=== PATIENT | female | born 1970 | race Caucasian/White ===

== ENCOUNTER 2018-04-21 11:19 | Emergency (ER) | payer MEDICAID ==
[~2018-04-21] VITALS: Ht 165.1 cm; Wt 134.8 kg
[~2018-04-21 11:19] MED LIST: ATOR10TA87 PO; CLOP75TA35 PO; DIL100C PO; HYDR1TAB PO; LOP25T PO; ZOLP5TAB8 PO
[2018-04-21 11:21] VITALS: BP 157/92
[2018-04-21] MEDS ORDERED: ethyl chloride 103.5ml spray TP ONE (14:15)
[2018-04-21 15:56] LABS: GLUCOSE,SYNOVIAL FLUID 70 MG/DL; TOTAL PROTEIN,SYNOVIAL FLUID 3.3 GM/DL
[2018-04-21 16:17] LABS: APPEARANCE,SYNOVIAL FLUID CLOUDY; COLOR,SYNOVIAL FLUID YELLOW; SYN RBC 108 /CU MM (0); SYN WBC 3425 /CU MM (0-200)
[2018-04-21 16:18] LABS: SYNOVIAL FLUID CRYSTALS QT NO CRYSTALS SEEN
== END 2018-04-21 14:55 | disposition home or self-care (01) ==
LOC: ER 11:19
DX: M25.462 Effusion, left knee (principal); I25.2 Old myocardial infarction; J45.909 Unspecified asthma, uncomplicated; Z91.09 Other allergy status, other than to drugs and biological substances; Z95.1 Presence of aortocoronary bypass graft; Z88.8 Allergy status to other drugs, medicaments and biological substances; Z79.899 Other long term (current) drug therapy
CPT/HCPCS: 20610; 82945; 84157; 87070; 89051; 89060; 99284

== ENCOUNTER 2018-06-30 17:00 | Emergency (ER) | payer MEDICAID ==
[~2018-06-30] VITALS: Ht 165.1 cm; Wt 123.5 kg
[2018-06-30 17:05] VITALS: BP 157/108
[2018-06-30] MEDS ORDERED: IBUP-1984 PO (17:36)
[2018-06-30] MEDS ORDERED: AZIT250T83 PO (17:36)
[2018-06-30] MEDS ORDERED: HYDROcodone/acetaminophen 10/325mg tab PO ONE (17:40)
[2018-06-30] MEDS ORDERED: ketorolac trometh inj. 60 MG/2 ML VIAL IM ONE (17:40)
== END 2018-06-30 18:07 | disposition home or self-care (01) ==
LOC: ER 17:01
DX: J32.9 Chronic sinusitis, unspecified (principal); J20.9 Acute bronchitis, unspecified; R51 Headache; M25.462 Effusion, left knee; J45.909 Unspecified asthma, uncomplicated; I25.2 Old myocardial infarction; Z88.6 Allergy status to analgesic agent; Z79.899 Other long term (current) drug therapy
CPT/HCPCS: 96372; 99284; J1885

== ENCOUNTER 2018-08-09 08:05 | Emergency (ER) | payer MEDICAID ==
[~2018-08-09] VITALS: Ht 165.1 cm; Wt 125.7 kg
[2018-08-09 08:07] VITALS: BP 140/94
[2018-08-09] MEDS ORDERED: HYDROcodone/acetaminophen 10/325mg tab PO ONE (09:40)
[2018-08-09] MEDS ORDERED: ibuprofen tablet 400 MG TABLET PO ONE (09:40)
== END 2018-08-09 10:03 | disposition home or self-care (01) ==
LOC: ER 08:05
DX: M25.562 Pain in left knee (principal); M25.662 Stiffness of left knee, not elsewhere classified; L90.5 Scar conditions and fibrosis of skin; I25.2 Old myocardial infarction; J45.909 Unspecified asthma, uncomplicated; Z88.8 Allergy status to other drugs, medicaments and biological substances; Z79.899 Other long term (current) drug therapy; Z95.1 Presence of aortocoronary bypass graft; X50.1XXA Overexertion from prolonged static or awkward postures, initial encounter; Y93.89 Activity, other specified; Y92.89 Other specified places as the place of occurrence of the external cause; Y99.8 Other external cause status
CPT/HCPCS: 73564; 99284

== ENCOUNTER 2021-07-01 19:11 | Emergency (ER) | payer MEDICAID ==
[~2021-07-01] VITALS: Ht 165.1 cm; Wt 136.4 kg
[~2021-07-01 19:11] MED LIST changes: +CLOP75TA34 PO; -CLOP75TA35 PO
[2021-07-01] MEDS ORDERED: normal saline 1000ml 1,000 ML IV ONE (20:05)
[2021-07-01] MEDS ORDERED: BAMLANIVIMAB 700mg/20ml inj. 700 MG, ETESEVIMAB 700mg/20mL inj. 1,400 MG in normal sali... IV ONE (20:05)
[2021-07-01 20:51] LABS: BASOPHILS # (AUTO) 0.1 X10'3 (0-0.2); BASOPHILS % (AUTO) 0.8 % (0-1); EOSINOPHILS # (AUTO) 0.1 X10'3 (0-0.9); EOSINOPHILS % (AUTO) 1.1 % (0-6); HEMOGLOBIN 17.3 g/dl (12.0-16.0); LYMPHOCYTES # (AUTO) 2.3 X10'3 (1.1-4.8); LYMPHOCYTES % (AUTO) 36.2 % (21-51); MEAN CORPUSCULAR HEMOGLOBIN 32.2 PG (27.0-31.0); MEAN CORPUSCULAR HGB CONC 34.7 g/dL (33.0-36.5); MONOCYTES # (AUTO) 0.7 X10'3 (0-0.9); MONOCYTES % (AUTO) 10.9 % (2-12); NEUTROPHILS # (AUTO) 3.3 X10'3 (1.8-7.7); PLATELET COUNT 301 X10'3 (140-440); RED BLOOD COUNT 5.38 X10'6 (4.20-5.60); RED CELL DISTRIBUTION WIDTH 12.7 % (11.5-14.5); WHITE BLOOD COUNT 6.5 X10'3 (4.5-11.0)
[2021-07-01 20:55] LABS: ALANINE AMINOTRANSFERASE 71 U/L (12-78); ALBUMIN 3.9 G/DL (3.4-5.0); ALBUMIN/GLOBULIN RATIO 0.9 (1.1-1.5); ALKALINE PHOSPHATASE 104 IU/L (46-116); ANION GAP 10 (8-16); ASPARTATE AMINO TRANSFERASE 45 U/L (10-37); BILIRUBIN,TOTAL 0.3 MG/DL (0.1-1.0); BLOOD UREA NITROGEN 18 MG/DL (7-18); BUN/CREATININE RATIO 19.4 (6.6-38.0); CALCIUM 9.8 MG/DL (8.5-10.1); CHLORIDE 104 MMOL/L (99-107); CREATININE 0.93 MG/DL (0.40-0.90); GLUCOSE 105 MG/DL (70-104); POTASSIUM 4.6 MMOL/L (3.5-5.1); SODIUM 142 MMOL/L (135-145); TOTAL CARBON DIOXIDE 27.7 MMOL/L (24-32); TOTAL PROTEIN 8.3 G/DL (6.4-8.2); eGFR 64 ML/MIN
[2021-07-01 22:54] VITALS: BP 129/95
== END 2021-07-01 22:45 | disposition home or self-care (01) ==
LOC: ER 19:12
DX: U07.1 COVID-19 (principal); R05.9 Cough, unspecified; I25.10 Atherosclerotic heart disease of native coronary artery without angina pectoris; I25.2 Old myocardial infarction; J45.909 Unspecified asthma, uncomplicated; Z95.5 Presence of coronary angioplasty implant and graft; Z88.8 Allergy status to other drugs, medicaments and biological substances; Z79.899 Other long term (current) drug therapy
CPT/HCPCS: 36415; 71045; 80053; 85025; 87635; 99284; C9803; M0239; Q0239; Q0245

== ENCOUNTER 2021-07-21 10:04 | Inpatient (IN) | payer MEDICAID ==
[~2021-07-21] VITALS: Ht 167.6 cm; Wt 110.0 kg
[~2021-07-21 10:04] MED LIST changes: +levetiracetam inj 1,000 MG in normal saline 100ml IV soln 90 ML IV SCH
--- NOTE | 2021-07-21 10:51 | NUR ---
ATTEMPT EKG, PT TO CT AT THIS MOMENT,
[2021-07-21 11:06] LABS: BASOPHILS % (AUTO) 0.5 % (0-1); EOSINOPHILS % (AUTO) 0.3 % (0-6); HEMATOCRIT 36.4 % (35.0-45.0); HEMOGLOBIN 12.5 g/dl (12.0-16.0); LYMPHOCYTES # (AUTO) 1.1 X10'3 (1.1-4.8); LYMPHOCYTES % (AUTO) 11.6 % (21-51); MEAN CORPUSCULAR HGB CONC 34.2 g/dL (33.0-36.5); MEAN CORPUSCULAR VOLUME 93.6 FL (78-98); MEAN PLATELET VOLUME 7.8 FL (7.4-10.4); MONOCYTES # (AUTO) 0.8 X10'3 (0-0.9); NEUTROPHILS # (AUTO) 7.7 X10'3 (1.8-7.7); NEUTROPHILS % (AUTO) 79.6 % (42-75); PLATELET COUNT 301 X10'3 (140-440); RED BLOOD COUNT 3.89 X10'6 (4.20-5.60); RED CELL DISTRIBUTION WIDTH 12.7 % (11.5-14.5); WHITE BLOOD COUNT 9.6 X10'3 (4.5-11.0)
[2021-07-21 11:19] LABS: ALANINE AMINOTRANSFERASE 41 U/L (12-78); ALBUMIN 3.1 G/DL (3.4-5.0); ALBUMIN/GLOBULIN RATIO 0.9 (1.1-1.5); ALKALINE PHOSPHATASE 89 IU/L (46-116); ANION GAP 11 (8-16); ASPARTATE AMINO TRANSFERASE 25 U/L (10-37); BILIRUBIN,TOTAL 0.4 MG/DL (0.1-1.0); BLOOD UREA NITROGEN 13 MG/DL (7-18); BUN/CREATININE RATIO 18.6 (6.6-38.0); CALCIUM 8.5 MG/DL (8.5-10.1); CHLORIDE 108 MMOL/L (99-107); ETHANOL < 0.010 GM/DL (0.0-0.010); GLUCOSE 106 MG/DL (70-104); SODIUM 143 MMOL/L (135-145); TOTAL CARBON DIOXIDE 24.3 MMOL/L (24-32); TOTAL PROTEIN 6.7 G/DL (6.4-8.2); eGFR 89 ML/MIN
[2021-07-21] MEDS ORDERED: LORazepam 2 mg/ml vial ONE (11:50)
[2021-07-21] MEDS ORDERED: LORazepam 2 mg/ml vial IV ONE (11:50)
[2021-07-21 11:56] LABS: URINE AMPHETAMINE SCREEN POSITIVE (Neg); URINE BARBITUATE SCREEN NEGATIVE (Neg); URINE BENZODIAZEPINES SCREEN NEGATIVE (Neg); URINE CANNABINOID SCREEN NEGATIVE (Neg); URINE COCAINE SCREEN NEGATIVE (Neg); URINE METHADONE SCREEN NEGATIVE (Neg); URINE OPIATE SCREEN NEGATIVE (Neg); URINE PHENCYCLIDINE SCREEN NEGATIVE (Neg)
--- NOTE | 2021-07-21 11:59 | NUR ---
FAMILY AT BEDSIDE STATING PT HAVING SEIZURE. DR ANGELO AWARE AND MEDS ORDERED
[2021-07-21] MEDS ORDERED: furosemide 10 MG/1 ML 10ml inj IV ONE (12:45)
[2021-07-21] MEDS ORDERED: levetiracetam inj 1,000 MG in normal saline 100ml IV soln 90 ML IV ONE ×2 (12:53→17:35)
[2021-07-21 13:16] LABS: CLARITY,URINE TURBID (Clear); COLOR,URINE YELLOW (Yellow); GLUCOSE, URINE NEGATIVE (Neg); KETONES,URINE TRACE mg/dl (Neg); LEUKOCYTE ESTERASE ,URINE NEGATIVE (Neg); NITRITES, URINE NEGATIVE (Neg); OCCULT BLOOD,URINE NEGATIVE (Neg); PROTEIN,URINE NEGATIVE (Neg); UA COLLECTION TYPE VOIDED; UROBILINOGEN,URINE 0.2 E.U/dL (0.2-1.0)
[2021-07-21] MEDS ORDERED: bisacodyl 10mg suppository rectal RC PRN (13:20)
[2021-07-21] MEDS: normal saline 1000ml 1,000 ML IV SCH ×2 (13:20→23:20)
[2021-07-21] MEDS ORDERED: acetaminophen 325mg tablet PO PRN ×2 (13:20)
[2021-07-21] MEDS ORDERED: magnesium 4gm in 100ml NS 100 ML IV PRN (13:20)
[2021-07-21] MEDS ORDERED: mag hydrox/Alum hydrox/simeth 30ml oral suspension PO PRN (13:20)
[2021-07-21] MEDS ORDERED: ondansetron/PF 4mg/2ml inj IV PRN (13:20)
[2021-07-21] MEDS ORDERED: potassium Cl 20 mEq SR tablet PO PRN ×2 (13:20)
[2021-07-21] MEDS ORDERED: LORazepam 2 mg/ml vial IV PRN (13:20)
[2021-07-21] MEDS ORDERED: magnesium Cl slow-release 64mg tablet PO PRN (13:20)
[2021-07-21] MEDS ORDERED: potassium Cl 40MEQ/1/2NS 520ml 520 ML IV PRN ×2 (13:20)
[2021-07-21] MEDS ORDERED: HYDROcodone/acetaminophen 10/325mg tab PO PRN (13:20)
[2021-07-21] MEDS ORDERED: magnesium 2GM in 50ml NS 50 ML IV PRN (13:20)
[2021-07-21] MEDS ORDERED: HYDROcodone/acetaminophen 5mg/325mg tablet PO PRN (13:20)
[2021-07-21] MEDS ORDERED: magnesium hydroxide 30ml (MOM) UD suspension PO PRN (13:20)
[2021-07-21 13:29] LABS: AMORPHOUS URATES 3+
[2021-07-21 13:31] LABS: BACTERIA,URINE NONE SEEN /HPF (Neg); RBC,URINE NONE SEEN /HPF (0-2); SQUAMOUS EPITHELIAL CELL,UR MANY /LPF (FEW); WBC,URINE 0-4 /HPF (0-4)
[2021-07-21 13:32] LABS: MUCUS STRANDS NONE SEEN /LPF (Neg)
[2021-07-21] MEDS ORDERED: NO HOME MEDS PO (16:08)
[2021-07-21] MEDS ORDERED: levetiracetam inj 1,000 MG in normal saline 100ml IV soln 90 ML IV SCH (18:15)
[2021-07-21] MEDS: K and/or MAG REPLACEMENT MC SCH (20:00)
[2021-07-21] MEDS: docusate sod 100mg capsule PO SCH (20:38)
[2021-07-21] MEDS ORDERED: temazepam 15mg capsule PO PRN (21:00)
[2021-07-22] MEDS ORDERED: levetiracetam inj 1,000 MG in normal saline 100ml IV soln 90 ML IV SCH (01:00)
[2021-07-22 01:30] LABS: BASOPHILS # (AUTO) 0.1 X10'3 (0-0.2); BASOPHILS % (AUTO) 0.9 % (0-1); EOSINOPHILS # (AUTO) 0.2 X10'3 (0-0.9); HEMATOCRIT 37.7 % (35.0-45.0); HEMOGLOBIN 12.9 g/dl (12.0-16.0); LYMPHOCYTES # (AUTO) 2.5 X10'3 (1.1-4.8); LYMPHOCYTES % (AUTO) 28.8 % (21-51); MEAN CORPUSCULAR HGB CONC 34.2 g/dL (33.0-36.5); MEAN CORPUSCULAR VOLUME 93.7 FL (78-98); MEAN PLATELET VOLUME 7.7 FL (7.4-10.4); MONOCYTES % (AUTO) 11.3 % (2-12); NEUTROPHILS # (AUTO) 4.9 X10'3 (1.8-7.7); PLATELET COUNT 266 X10'3 (140-440); RED BLOOD COUNT 4.02 X10'6 (4.20-5.60); RED CELL DISTRIBUTION WIDTH 12.7 % (11.5-14.5); WHITE BLOOD COUNT 8.5 X10'3 (4.5-11.0)
[2021-07-22 01:45] LABS: ALANINE AMINOTRANSFERASE 37 U/L (12-78); ALBUMIN 3.1 G/DL (3.4-5.0); ALBUMIN/GLOBULIN RATIO 0.9 (1.1-1.5); ALKALINE PHOSPHATASE 79 IU/L (46-116); ANION GAP 10 (8-16); ASPARTATE AMINO TRANSFERASE 20 U/L (10-37); BILIRUBIN,TOTAL 0.6 MG/DL (0.1-1.0); BLOOD UREA NITROGEN 11 MG/DL (7-18); BUN/CREATININE RATIO 15.5 (6.6-38.0); CALCIUM 8.5 MG/DL (8.5-10.1); CHLORIDE 109 MMOL/L (99-107); CREATININE 0.71 MG/DL (0.40-0.90); GLUCOSE 86 MG/DL (70-104); MAGNESIUM 2.1 MG/DL (1.5-2.4); POTASSIUM 3.1 MMOL/L (3.5-5.1); SODIUM 146 MMOL/L (135-145); TOTAL CARBON DIOXIDE 27.3 MMOL/L (24-32); TOTAL PROTEIN 6.5 G/DL (6.4-8.2); eGFR 87 ML/MIN
[2021-07-22 08:00] VITALS: BP 135/83
[2021-07-22] MEDS: docusate sod 100mg capsule PO SCH (08:00)
[2021-07-22] MEDS: K and/or MAG REPLACEMENT MC SCH ×2 (08:00→09:02)
[2021-07-22] MEDS: normal saline 1000ml 1,000 ML IV SCH (09:20)
[2021-07-22] MEDS ORDERED: KEP500T PO (10:54)
== END 2021-07-22 11:38 | disposition home or self-care (01) | DRG 53 ==
LOC: ER 10:05 → ED HOLD 13:31
PROVIDERS: ADMIT Family Medicine; ATTEND Family Medicine
DX: G40.909 Epilepsy, unspecified, not intractable, without status epilepticus (principal); E87.0 Hyperosmolality and hypernatremia; E88.81 Metabolic syndrome and other insulin resistance; E78.5 Hyperlipidemia, unspecified; E87.6 Hypokalemia; J45.909 Unspecified asthma, uncomplicated; E66.01 Morbid (severe) obesity due to excess calories; F15.10 Other stimulant abuse, uncomplicated; F17.200 Nicotine dependence, unspecified, uncomplicated; I25.10 Atherosclerotic heart disease of native coronary artery without angina pectoris; I25.2 Old myocardial infarction; Z86.16 Personal history of COVID-19; Z91.14 Patient's other noncompliance with medication regimen; Z95.1 Presence of aortocoronary bypass graft; Z88.8 Allergy status to other drugs, medicaments and biological substances; Z68.39 Body mass index [BMI] 39.0-39.9, adult
CPT/HCPCS: 36415; 70450; 71045; 80053; 80305; 80320; 81001; 82948; 83735; 85025; 93005; 96374; 96375; 99285; G0378; J1940; J1953; J2060; J2405; J7030

== ENCOUNTER 2024-01-17 10:13 | Inpatient (IN) | payer MEDICAID, OTHER ==
[2024-01-17] VITALS (7 sets, daily range): BP systolic 121–156; BP diastolic 92–97; PULSE 93–104; RESP 20–26; TEMP 97–99.3; O2SAT 89–93
[~2024-01-17] VITALS: Ht 165.1 cm; Wt 309.4 kg
[~2024-01-17 10:13] MED LIST changes: -ATOR10TA87 PO; -CLOP75TA34 PO; -DIL100C PO; -HYDR1TAB PO; +KEP500T PO; -LOP25T PO; -ZOLP5TAB8 PO; -levetiracetam inj 1,000 MG in normal saline 100ml IV soln 90 ML IV SCH
[2024-01-17 11:23] LABS: BASOPHILS # (AUTO) 0.1 X10'3 (0-0.2); BASOPHILS % (AUTO) 0.6 % (0-1); EOSINOPHILS # (AUTO) 0.3 X10'3 (0-0.9); EOSINOPHILS % (AUTO) 2.5 % (0-6); HEMATOCRIT 48.6 % (35.0-45.0); HEMOGLOBIN 16.3 g/dl (12.0-16.0); LYMPHOCYTES # (AUTO) 2.5 X10'3 (1.1-4.8); MEAN CORPUSCULAR HEMOGLOBIN 31.6 PG (27.0-31.0); MEAN CORPUSCULAR HGB CONC 33.6 g/dL (33.0-36.5); MEAN CORPUSCULAR VOLUME 94.1 FL (78-98); MEAN PLATELET VOLUME 7.8 FL (7.4-10.4); MONOCYTES # (AUTO) 1.5 X10'3 (0-0.9); MONOCYTES % (AUTO) 14.9 % (2-12); PLATELET COUNT 392 X10'3 (140-440); RED BLOOD COUNT 5.17 X10'6 (4.20-5.60); RED CELL DISTRIBUTION WIDTH 12.9 % (11.5-14.5); WHITE BLOOD COUNT 10.4 X10'3 (4.5-11.0)
[2024-01-17] MEDS ORDERED: ipratropium/albuterol 3ml nebule NEB PRN (11:35)
[2024-01-17 11:40] LABS: ALBUMIN 3.3 G/DL (3.4-5.0); ANION GAP 10 (8-16); BLOOD UREA NITROGEN 18 MG/DL (7-18); BUN/CREATININE RATIO 18.8 (10.0-20.0); CALCIUM 9.7 MG/DL (8.5-10.1); CHLORIDE 102 MMOL/L (99-107); CREATININE 0.96 MG/DL (0.40-0.90); GLUCOSE 134 MG/DL (70-104); PRO BRAIN NATRIURETIC PEPTIDE 74 PG/ML (0-125); SODIUM 140 MMOL/L (135-145); TOTAL CARBON DIOXIDE 28.2 MMOL/L (24-32); eCRCL 62 ML/MIN; eGFR 61 ML/MIN
[2024-01-17 11:43] LABS: POTASSIUM 3.7 MMOL/L (3.5-5.1)
[2024-01-17] MEDS: methylPREDNISolone sod succ 125mg/2ml vial IV ONE (13:23)
[2024-01-17] MEDS: CefTRIAXone 2gm/D5W 50ml BAG 50 ML IV ONE (13:23)
[2024-01-17] MEDS: azithromycin/NS 500mg/250ml 250 ML IV ONE (13:55)
[2024-01-17] MEDS ORDERED: iohexol 350MG/ML 100ml bottle IV ONE (16:29)
[2024-01-17] MEDS ORDERED: potassium Cl 40MEQ/1/2NS 520ml 520 ML IV PRN (16:55)
[2024-01-17] MEDS ORDERED: magnesium 2GM in 50ml NS 50 ML IV PRN (16:55)
[2024-01-17] MEDS ORDERED: magnesium Cl slow-release 64mg tablet PO PRN (16:55)
[2024-01-17] MEDS ORDERED: morphine 2 MG/ML inj. syringe IV PRN (16:55)
[2024-01-17] MEDS ORDERED: ondansetron/PF 4mg/2ml inj IV PRN (16:55)
[2024-01-17] MEDS ORDERED: acetaminophen 325mg tablet PO PRN (16:55)
[2024-01-17] MEDS ORDERED: magnesium 4gm in 100ml NS 100 ML IV PRN (16:55)
[2024-01-17] MEDS ORDERED: potassium Cl 20 mEq SR tablet PO PRN ×2 (16:55)
[2024-01-17] MEDS ORDERED: HYDROcodone/acetaminophen 5mg/325mg tablet PO PRN (16:55)
[2024-01-17 17:43] LABS: HCG SERUM QL NEGATIVE
[2024-01-17] MEDS: ipratropium/albuterol 3ml nebule NEB SCH (19:13)
[2024-01-17] MEDS: methylPREDNISolone sod succ 125mg/2ml vial IV SCH (20:00)
[2024-01-17] MEDS: K and/or MAG REPLACEMENT MC SCH (20:00)
[2024-01-17] MEDS ORDERED: temazepam 15mg capsule PO PRN (21:00)
[2024-01-17] MEDS: docusate sod 100mg capsule PO SCH (22:40)
[2024-01-18] VITALS (21 sets, daily range): BP systolic 110–159; BP diastolic 59–104; PULSE 107–124; RESP 16–26; TEMP 97.5–98.6; O2SAT 89–100
[2024-01-18 07:33] LABS: BASOPHILS % (AUTO) 0.3 % (0-1); EOSINOPHILS % (AUTO) 0 % (0-6); HEMATOCRIT 45.3 % (35.0-45.0); HEMOGLOBIN 15.1 g/dl (12.0-16.0); LYMPHOCYTES # (AUTO) 0.9 X10'3 (1.1-4.8); LYMPHOCYTES % (AUTO) 11.4 % (21-51); MEAN CORPUSCULAR HEMOGLOBIN 31.2 PG (27.0-31.0); MEAN CORPUSCULAR HGB CONC 33.3 g/dL (33.0-36.5); MEAN CORPUSCULAR VOLUME 93.6 FL (78-98); MEAN PLATELET VOLUME 7.8 FL (7.4-10.4); MONOCYTES # (AUTO) 0.3 X10'3 (0-0.9); MONOCYTES % (AUTO) 3.7 % (2-12); NEUTROPHILS # (AUTO) 6.9 X10'3 (1.8-7.7); NEUTROPHILS % (AUTO) 84.6 % (42-75); PLATELET COUNT 381 X10'3 (140-440); RED BLOOD COUNT 4.84 X10'6 (4.20-5.60); RED CELL DISTRIBUTION WIDTH 12.7 % (11.5-14.5); WHITE BLOOD COUNT 8.1 X10'3 (4.5-11.0)
[2024-01-18 08:05] LABS: ALBUMIN 3.4 G/DL (3.4-5.0); ANION GAP 11 (8-16); BLOOD UREA NITROGEN 18 MG/DL (7-18); BUN/CREATININE RATIO 21.7 (10.0-20.0); CALCIUM 9.9 MG/DL (8.5-10.1); CHLORIDE 102 MMOL/L (99-107); CREATININE 0.83 MG/DL (0.40-0.90); GLUCOSE 179 MG/DL (70-104); MAGNESIUM 1.9 MG/DL (1.5-2.4); POTASSIUM 3.6 MMOL/L (3.5-5.1); SODIUM 140 MMOL/L (135-145); TOTAL CARBON DIOXIDE 26.6 MMOL/L (24-32); eCRCL 72 ML/MIN; eGFR 72 ML/MIN
[2024-01-18] MEDS: CefTRIAXone/D5W-Rocephin 1gm 50 ML IV SCH (10:00)
[2024-01-18] MEDS: azithromycin 250mg tablet PO SCH (10:17)
[2024-01-18] MEDS: LEVALBUTEROL HCL 1.25 MG/3 ML VIAL.NEB INH SCH (16:35)
[2024-01-18] MEDS ORDERED: guaiFENesin/DM 10ml UD oral syrup PO PRN (20:05)
[2024-01-18] MEDS: LORazepam 0.5 MG tablet PO ONE (20:55)
[2024-01-19] VITALS (15 sets, daily range): BP systolic 109–148; BP diastolic 62–92; PULSE 87–121; RESP 18–25; TEMP 97–98.2; O2SAT 94–99
[2024-01-19 07:56] LABS: BASOPHILS % (AUTO) 0.2 % (0-1); EOSINOPHILS % (AUTO) 0 % (0-6); HEMATOCRIT 42.9 % (35.0-45.0); HEMOGLOBIN 14.3 g/dl (12.0-16.0); LYMPHOCYTES # (AUTO) 0.9 X10'3 (1.1-4.8); LYMPHOCYTES % (AUTO) 6.3 % (21-51); MEAN CORPUSCULAR HEMOGLOBIN 31.4 PG (27.0-31.0); MEAN CORPUSCULAR HGB CONC 33.4 g/dL (33.0-36.5); MONOCYTES # (AUTO) 0.7 X10'3 (0-0.9); MONOCYTES % (AUTO) 4.8 % (2-12); NEUTROPHILS # (AUTO) 12.2 X10'3 (1.8-7.7); NEUTROPHILS % (AUTO) 88.7 % (42-75); PLATELET COUNT 347 X10'3 (140-440); RED BLOOD COUNT 4.57 X10'6 (4.20-5.60); RED CELL DISTRIBUTION WIDTH 12.9 % (11.5-14.5); WHITE BLOOD COUNT 13.8 X10'3 (4.5-11.0)
[2024-01-19] MEDS: levetiracetam 250mg tablet PO SCH (08:08)
[2024-01-19 08:17] LABS: ALBUMIN 3.4 G/DL (3.4-5.0); ANION GAP 8 (8-16); BLOOD UREA NITROGEN 23 MG/DL (7-18); BUN/CREATININE RATIO 28.8 (10.0-20.0); CALCIUM 9.9 MG/DL (8.5-10.1); CHLORIDE 104 MMOL/L (99-107); GLUCOSE 162 MG/DL (70-104); MAGNESIUM 2.2 MG/DL (1.5-2.4); POTASSIUM 4.3 MMOL/L (3.5-5.1); SODIUM 141 MMOL/L (135-145); TOTAL CARBON DIOXIDE 29.3 MMOL/L (24-32); eCRCL 75 ML/MIN; eGFR 76 ML/MIN
[2024-01-19] MEDS ORDERED: dextrose 50%-water 50ml dispensing syringe IV PRN ×2 (22:30)
[2024-01-19] MEDS ORDERED: glucagon, human recombinant 1mg kit SUBCUT PRN (22:30)
[2024-01-19] MEDS ORDERED: DEXTROSE 15 GM of carb/4 tabs (each vial/BOTTLE has 4 tablets) PO PRN ×2 (22:30)
[2024-01-19 22:52] LABS: HEMOGLOBIN A1C 6.3 % (4.5-6.2)
[2024-01-20] VITALS (15 sets, daily range): BP systolic 118–127; BP diastolic 44–76; PULSE 85–113; RESP 17–26; TEMP 97.5–98.2; O2SAT 92–98
[2024-01-20] MEDS: INSULIN LISPRO 100 UNIT/ML INSULN.PEN MULTI-DOSE SQ SCH (07:00)
[2024-01-20 07:13] LABS: BASOPHILS % (AUTO) 0.1 % (0-1); EOSINOPHILS % (AUTO) 0 % (0-6); HEMATOCRIT 44.2 % (35.0-45.0); HEMOGLOBIN 14.8 g/dl (12.0-16.0); LYMPHOCYTES # (AUTO) 1.3 X10'3 (1.1-4.8); MEAN CORPUSCULAR HEMOGLOBIN 31.7 PG (27.0-31.0); MEAN CORPUSCULAR HGB CONC 33.4 g/dL (33.0-36.5); MEAN CORPUSCULAR VOLUME 94.9 FL (78-98); MONOCYTES # (AUTO) 1.2 X10'3 (0-0.9); MONOCYTES % (AUTO) 7.9 % (2-12); NEUTROPHILS # (AUTO) 12.3 X10'3 (1.8-7.7); PLATELET COUNT 345 X10'3 (140-440); RED BLOOD COUNT 4.65 X10'6 (4.20-5.60); RED CELL DISTRIBUTION WIDTH 12.9 % (11.5-14.5); WHITE BLOOD COUNT 14.8 X10'3 (4.5-11.0)
[2024-01-20 07:42] LABS: ALBUMIN 3.3 G/DL (3.4-5.0); ANION GAP 2 (8-16); BLOOD UREA NITROGEN 25 MG/DL (7-18); BUN/CREATININE RATIO 35.2 (10.0-20.0); CALCIUM 9.9 MG/DL (8.5-10.1); CHLORIDE 105 MMOL/L (99-107); CREATININE 0.71 MG/DL (0.40-0.90); GLUCOSE 130 MG/DL (70-104); MAGNESIUM 2.2 MG/DL (1.5-2.4); POTASSIUM 4.4 MMOL/L (3.5-5.1); SODIUM 136 MMOL/L (135-145); TOTAL CARBON DIOXIDE 28.8 MMOL/L (24-32); eCRCL 84 ML/MIN; eGFR 87 ML/MIN
[2024-01-20] MEDS: insulin Lispro (HumaLOG) vial - multi-dose SQ SCH (12:06)
[2024-01-20] MEDS ORDERED: AMOX-419 PO (15:01)
[2024-01-20] MEDS ORDERED: LEVA1.2544 INH (15:01)
[2024-01-20] MEDS ORDERED: PRED10TA23 PO (15:02)
[2024-01-20] MEDS ORDERED: PANT-47 PO (15:03)
== END 2024-01-20 17:45 | disposition home or self-care (01) | DRG 189 ==
LOC: ER 10:14 → PCU 3S 16:59
PROVIDERS: ADMIT Internal Medicine; ATTEND Internal Medicine
PROC: B32T1ZZ Computerized Tomography (CT Scan) of Left Pulmonary Artery using Low Osmolar Contrast (ICD-10-PCS; principal; 2024-01-17)
PROC: B3201ZZ Computerized Tomography (CT Scan) of Thoracic Aorta using Low Osmolar Contrast (ICD-10-PCS; 2024-01-17)
PROC: B32S1ZZ Computerized Tomography (CT Scan) of Right Pulmonary Artery using Low Osmolar Contrast (ICD-10-PCS; 2024-01-17)
DX: J96.00 Acute respiratory failure, unspecified whether with hypoxia or hypercapnia (principal); J44.1 Chronic obstructive pulmonary disease with (acute) exacerbation; Z68.45 Body mass index [BMI] 70 or greater, adult; F17.210 Nicotine dependence, cigarettes, uncomplicated; E78.5 Hyperlipidemia, unspecified; G40.909 Epilepsy, unspecified, not intractable, without status epilepticus; E66.01 Morbid (severe) obesity due to excess calories; Z20.822 Contact with and (suspected) exposure to COVID-19; I25.10 Atherosclerotic heart disease of native coronary artery without angina pectoris; J06.9 Acute upper respiratory infection, unspecified; I25.2 Old myocardial infarction; Z95.1 Presence of aortocoronary bypass graft; Z95.5 Presence of coronary angioplasty implant and graft; Z88.8 Allergy status to other drugs, medicaments and biological substances; Z90.49 Acquired absence of other specified parts of digestive tract
CPT/HCPCS: 36415; 71045; 71275; 80048; 82948; 83036; 83735; 83880; 84145; 84484; 84703; 85025; 87081; 87502; 87503; 87811; 93005; 94640; 94664; 94668; 94760; 97116; 97161; 97530; 99285; A4615; G0378; J0456; J0696; J1815; J2930; J3490; J7040; J7614; Q9967